=== PATIENT | female | born 1960 | race Caucasian/White ===

== ENCOUNTER 2016-04-18 11:44 | Emergency (ER) | payer OTHER ==
[2016-04-18 11:51] VITALS: BP 143/78; PULSE 99; RESP 17; TEMP 98.6; O2SAT 97
[2016-04-18] MEDS ORDERED: ACETAMINOPHEN 500 MG TAB PO ONE (12:05)
--- NOTE | 2016-04-18 12:10 | EDPHY ---
H & P Smoking Status: Never smoked Time Seen by Provider: 04/18/16 11:53 HPI/ROS: CHIEF COMPLAINT: Dog bite left forearm HISTORY OF PRESENT ILLNESS: 55-year-old female with up-to-date tetanus complaining of dog bite to her left forearm shortly prior to arrival when she was breaking up a fight between 2 dogs. She is complaining of pain to her forearm. No paresthesia. No sensory or motor deficit beyond reproducible pain with supination pronation PHYSICAL EXAM (Prior to examination, patient consented to physical exam, hands were washed and my usual and customary physical exam procedures followed) 1) GENERAL: Well-developed, well-nourished, alert and oriented. Appears to be in no acute distress. 2) HEAD: Normocephalic 3) HEENT: sclera anicteric 4) LUNGS: Breathing comfortably. 5) SKIN: on the volar and dorsal aspect of her left forearm she has multiple superficial puncture wounds and abrasions. Compartments are soft. She has tenderness to palpation. No visible deformity or angulation beyond the puncture wounds. 6) MUSCULOSKELETAL: reproducible pain with supination pronation. Distally and proximally nontender. 7) NEUROLOGIC: Radial ulnar median nerve function intact distally. (Brittany Langley) Constitutional: Initial Vital Signs Temperature (C) 37.0 C 04/18/16 11:48 Heart Rate 99 04/18/16 11:48 Respiratory Rate 17 04/18/16 11:48 Blood Pressure 143/78 H 04/18/16 11:48 O2 Sat (%) 97 04/18/16 11:48 O2 Delivery Mode Room Air Allergies/Adverse Reactions: No Known Allergies Allergy (Unverified 04/18/16 11:47) Home Medications: Medication Instructions Recorded Amoxicillin/Clavulanate Pot 875 mg PO BID #14 tab 04/18/16 [Augmentin 875 mg tab] oxyCODONE/APAP 5/325 [Percocet 1 tab PO Q6 #10 tab 04/18/16 5/325] MDM/Departure - MDM Diagnostics: Xray of the left for interpreted by myself: [no definitive acute osseous abnormality , no radiopaque foreign body ] (Brittany Langley) Procedures: Procedure: Splint A Velcro volar splint was applied by ER household appliances service technician for comfort measures. After application of the splint I returned and re-examined the patient. The splint was adequately immobilizing the joint and distal to the splint the patient's circulation and sensation were intact. Patient shows no signs of compartment syndrome. Was given orthopedic precautions. (Brittany Langley) Medications Given: Discontinued Medications Acetaminophen (Tylenol) 1,000 mg PO EDNOW ONE Stop: 04/18/16 12:06 Last Admin: 04/18/16 12:20 Dose: 1,000 mg ED Course/Re-evaluation: This patient has no current evidence of compartment syndrome or infection. She is started on prophylactic Augmentin and given my usual customary orthopedic and compartment syndrome precautions instructions. Recommend 2 day recheck. She feels comfortable being discharged. (Brittany Langley) I did not see this and while she was in the emergency department. However her care was discussed with the PA while the patient was in the department. I agree with treatment plan and management (Farzad Moulton) - Depart Disposition: Home, Routine, Self-Care Clinical Impression: Dog bite of left forearm Qualifiers: Encounter type: initial encounter Qualified Code(s): S51.852A - Open bite of left forearm, initial encounter Condition: Good Instructions: Animal Bite (ED) Additional Instructions: Return to the ER immediately if you experience discoloration, have worsening pain, numbness, tingling, redness, red streaks going up your arm, or any other symptoms that concern you. If you received x-rays in the emergency department today, be advised, that ligamentous, tendon, muscular, and other non-bony injury cannot be fully ruled out. Prescriptions: Amoxicillin/Clavulanate Pot [Augmentin 875 mg tab] 875 mg PO BID #14 tab oxyCODONE/APAP 5/325 [Percocet 5/325] 1 tab PO Q6 #10 tab Referrals: NONE *PRIMARY CARE P,. [Primary Care Provider] - As per Instructions
== END 2016-04-18 13:25 | disposition home or self-care (01) ==
DX: S51.852A Open bite of left forearm, initial encounter (principal); W54.0XXA Bitten by dog, initial encounter
CPT/HCPCS: L3908